=== PATIENT | male | born 1985 | race Hispanic/Latino ===

== ENCOUNTER 2020-11-09 23:30 | Inpatient (IN) | payer OTHER ==
[~2020-11-09] VITALS: Ht 175.3 cm; Wt 108.1 kg
[2020-11-10] VITALS (7 sets, daily range): BP systolic 103–117; BP diastolic 53–81
[2020-11-10] MEDS ORDERED: CEFTRIAXONE SODIUM 1 GM ONE ×2 (00:13→00:27)
[2020-11-10] MEDS ORDERED: AZITHROMYCIN 500MG+NS 250ML 250 ML IV ONE (00:13)
[2020-11-10] MEDS ORDERED: DEXAMETHASONE SOD PHOSPHATE 10MG/ML 1ML VIAL ONE (00:13)
[2020-11-10 00:16] LABS: CARBON DIOXIDE 26 mmol/L (21-32); CHLORIDE 101 mmol/L (101-111); CREATININE 1.2 mg/dL (0.5-1.5); GLOMERULAR FILTR. RATE CALC 73 mL/min (>60); GLUCOSE,RANDOM 112 mg/dL (70-105); POTASSIUM 3.5 mmol/L (3.5-5.1); SODIUM SERUM 140 mmol/L (136-145); UREA NITROGEN, BLOOD 13 mg/dL (7-18)
[2020-11-10 00:17] LABS: INR 1.06 (0.85-1.15); PROTHROMBIN TIME 11.5 SEC (9.6-11.6)
[2020-11-10 00:18] LABS: PARTIAL THROMBOPLASTIN TIME 27.1 SEC (26.3-35.5)
[2020-11-10 00:20] LABS: BASOPHILS % (AUTO) 0.2 % (0.0-5.0); HEMATOCRIT 47.8 % (42-54); LYMPHOCYTES % (AUTO) 14.5 % (21.0-51.0); MEAN CORPUSCULAR HEMOGLOBIN 29.6 pg (27.0-33.0); MEAN CORPUSCULAR HGB CONC 33.7 g/dL (32.0-36.0); MEAN CORPUSCULAR VOLUME 87.9 fL (79-99); MONOCYTES % (AUTO) 8.4 % (3.0-13.0); NEUTROPHILS % (AUTO) 75.9 % (40.0-77.0); PLATELET COUNT (AUTO) 238 K/uL (130-400); RED BLOOD CELL COUNT(AUTO) 5.44 MIL/uL (4.50-6.20); RED CELL DISTRIBUTION WIDTH 13.1 % (11.0-15.5); WHITE BLOOD COUNT (AUTO) 5.1 K/uL (4.8-10.8)
[2020-11-10 00:32] LABS: ALANINE AMINOTRANSFERASE 112 U/L (12-78); ALBUMIN 3.5 g/dL (3.5-5.0); ASPARTATE AMINOTRANSFERASE 112 U/L (10-37); MYOGLOBIN 200 ng/mL (10-92); TOTAL PROTEIN, SERUM 7.6 g/dL (6.0-8.3); TROPONIN I < 0.04 ng/mL (0.00-0.06)
[2020-11-10 00:35] LABS: CREATINE KINASE, TOTAL 500 U/L (21-232)
[2020-11-10 00:57] LABS: APPEARANCE,URINE Clear (CLEAR); BILIRUBIN,URINE Small (NEGATIVE); COLOR,URINE Dark Yellow (YELLOW); GLUCOSE, URINE (UA) Negative (NEGATIVE); KETONES,URINE 15 mg/dL (NEGATIVE); LEUKOCYTE ESTERASE ,URINE Negative (NEGATIVE); NITRATE,URINE Negative (NEGATIVE); OCCULT BLOOD,URINE Negative (NEGATIVE); PH,URINE 5.5 (5.0-8.0); PROTEIN,URINE POS 1+ mg/dL (NEGATIVE)
[2020-11-10 01:18] LABS: BACTERIA,URINE Few /HPF (None Seen); RBC,URINE 0-1 /HPF (0-1); SQUAMOUS EPITHELIAL CELL,UR 0-2 /HPF (0-2); WBC,URINE 0-1 /HPF (0-1)
[2020-11-10] MEDS ORDERED: DOXYCYCLINE 100MG+NS 250ML IV SCH (02:15)
[2020-11-10] MEDS ORDERED: CEFTRIAXONE SODIUM 1 GM IVP SCH ×2 (02:15→12:00)
[2020-11-10] MEDS ORDERED: PHARMACY COMMUNICATION MISC SCH (02:15)
[2020-11-10] MEDS ORDERED: ERGOCALCIFEROL (VITAMIN D2) 50,000 UNIT CAPSULE PO ONE (02:15)
[2020-11-10] MEDS ORDERED: DEXAMETHASONE SOD PHOSPHATE 4 MG/ML 1ML VIAL IVP SCH (02:15)
[2020-11-10] MEDS ORDERED: GUAIFENESIN-CODEINE 5 ML SYRUP PO PRN (02:15)
[2020-11-10] MEDS ORDERED: ONDANSETRON HCL 4 MG/2 ML VIAL IV PRN (02:15)
[2020-11-10] MEDS ORDERED: LACTULOSE 20 GM/30 ML UDCUP PO PRN (02:15)
[2020-11-10] MEDS ORDERED: ERGOCALCIFEROL (VITAMIN D2) 50,000 UNIT CAPSULE ONE (02:38)
[2020-11-10] MEDS ORDERED: DOXYCYCLINE 100MG+NS 250ML 250 ML IV ONE (02:38)
[2020-11-10] MEDS ORDERED: ONDANSETRON HCL 4 MG/2 ML VIAL ONE (02:50)
[2020-11-10 04:56] LABS: ABG BASE EXCESS 1.8 mmol/L (-2.0-3.0); ABG OXYGEN SATURATION 83.2 % (95.0-99.0); ABG PCO2 35 mmHg (35-48)
[2020-11-10] MEDS ORDERED: FISH1CAP27 PO (05:44)
[2020-11-10] MEDS ORDERED: CHOL50009 PO (05:44)
[2020-11-10] MEDS ORDERED: ZINC50TA64 PO (05:44)
[2020-11-10] MEDS ORDERED: ASCO500T92 PO (05:44)
[2020-11-10] MEDS ORDERED: SODIUM CHLORIDE 0.9% 250 ML IV ONE ×2 (05:57→07:41)
[2020-11-10] MEDS ORDERED: ENOXAPARIN SODIUM 40 MG/0.4 ML SYRINGE SQ SCH ×2 (06:00→09:00)
[2020-11-10] MEDS ORDERED: FAMOTIDINE/PF 20 MG/2 ML VIAL IV SCH (09:00)
[2020-11-10] MEDS ORDERED: ASCORBIC ACID 500 MG TAB PO SCH (09:00)
[2020-11-10] MEDS ORDERED: ZINC SULFATE 220 CAPSULE PO SCH (09:00)
[2020-11-10 11:24] LABS: ALBUMIN 3.2 g/dL (3.5-5.0); BILIRUBIN,DIRECT 0.4 mg/dL (0.0-0.3); BILIRUBIN,TOTAL 0.8 mg/dL (0.2-1.0); TOTAL PROTEIN, SERUM 6.9 g/dL (6.0-8.3)
[2020-11-10] MEDS ORDERED: ACETAMINOPHEN 325 MG TAB PO PRN ×2 (12:03)
[2020-11-10] MEDS ORDERED: DOXYCYCLINE HYCLATE 100 MG TABLET PO SCH (12:07)
[2020-11-10 12:33] LABS: HEMOGLOBIN A1C 6.3 % (4.0-6.0)
[2020-11-10] MEDS: DEXAMETHASONE SOD PHOSPHATE 4 MG/ML 1ML VIAL IVP SCH (12:52)
[2020-11-10] MEDS: ENOXAPARIN SODIUM 60 MG/0.6 ML SQ SCH ×2 (12:53→23:33)
[2020-11-10] MEDS ORDERED: IOHEXOL 350 MG/ML 100ML INFUS..BTL IV ONE (13:24)
[2020-11-10] MEDS: BARICITINIB (EUA) 2 MG TABLET PO SCH (16:33)
[2020-11-10] MEDS ORDERED: REMDESIVIR (EUA) 200 MG in SODIUM CHLORIDE 0.9% 250 ML IV SCH (17:00)
[2020-11-11 03:38] VITALS: BP 98/47
[2020-11-11 05:26] LABS: BASOPHILS % (AUTO) 0.1 % (0.0-5.0); HEMATOCRIT 43.8 % (42-54); LYMPHOCYTES % (AUTO) 14.6 % (21.0-51.0); MEAN CORPUSCULAR HEMOGLOBIN 29.7 pg (27.0-33.0); MEAN CORPUSCULAR HGB CONC 33.3 g/dL (32.0-36.0); MEAN CORPUSCULAR VOLUME 89.2 fL (79-99); MONOCYTES % (AUTO) 7.7 % (3.0-13.0); NEUTROPHILS % (AUTO) 76.6 % (40.0-77.0); PLATELET COUNT (AUTO) 257 K/uL (130-400); RED BLOOD CELL COUNT(AUTO) 4.91 MIL/uL (4.50-6.20); RED CELL DISTRIBUTION WIDTH 13.1 % (11.0-15.5); WHITE BLOOD COUNT (AUTO) 6.7 K/uL (4.8-10.8)
[2020-11-11 05:44] LABS: ALBUMIN 2.9 g/dL (3.5-5.0); BILIRUBIN,TOTAL 0.8 mg/dL (0.2-1.0); CRP QUANTITATIVE 22.9 mg/L (0.00-9.0); POTASSIUM 3.9 mmol/L (3.5-5.1); TOTAL PROTEIN, SERUM 6.6 g/dL (6.0-8.3)
[2020-11-11 08:39] VITALS: BP 81/45
[2020-11-11] MEDS: DEXAMETHASONE SOD PHOSPHATE 4 MG/ML 1ML VIAL IVP SCH (09:09)
[2020-11-11] MEDS: FAMOTIDINE 20MG TAB 20 MG TAB PO SCH (09:09)
[2020-11-11] MEDS ORDERED: PHARMACY COMMUNICATION MISC SCH ×2 (09:45→16:45)
[2020-11-11] MEDS: ENOXAPARIN SODIUM 100 MG/1 ML SQ SCH ×2 (10:58→21:23)
[2020-11-11] MEDS ORDERED: COMPOUND IV REFRIGERATED 1 EACH IVSOLN MISC PRN (13:00)
[2020-11-11 13:15] VITALS: BP 95/57
[2020-11-11 16:55] VITALS: BP 111/53
[2020-11-11] MEDS: BARICITINIB (EUA) 2 MG TABLET PO SCH (17:09)
[2020-11-11] MEDS: REMDESIVIR (EUA) 100 MG in SODIUM CHLORIDE 0.9% 250 ML IV SCH (17:10)
[2020-11-11 17:47] LABS: CREATININE 1.1 mg/dL (0.5-1.5); CRP QUANTITATIVE 27.2 mg/L (0.00-9.0); POTASSIUM 4.3 mmol/L (3.5-5.1)
[2020-11-11 19:31] VITALS: BP 123/77
[2020-11-11 23:55] VITALS: BP 104/50
[2020-11-12] VITALS (8 sets, daily range): BP systolic 92–113; BP diastolic 46–72
[2020-11-12 02:39] LABS: BASOPHILS % (AUTO) 0.2 % (0.0-5.0); HEMATOCRIT 44.2 % (42-54); LYMPHOCYTES % (AUTO) 18.5 % (21.0-51.0); MEAN CORPUSCULAR HEMOGLOBIN 29.5 pg (27.0-33.0); MEAN CORPUSCULAR HGB CONC 32.8 g/dL (32.0-36.0); MEAN CORPUSCULAR VOLUME 89.8 fL (79-99); MONOCYTES % (AUTO) 6.9 % (3.0-13.0); NEUTROPHILS % (AUTO) 72.7 % (40.0-77.0); PLATELET COUNT (AUTO) 276 K/uL (130-400); RED BLOOD CELL COUNT(AUTO) 4.92 MIL/uL (4.50-6.20); RED CELL DISTRIBUTION WIDTH 12.9 % (11.0-15.5); WHITE BLOOD COUNT (AUTO) 4.8 K/uL (4.8-10.8)
[2020-11-12 02:59] LABS: BILIRUBIN,TOTAL 0.8 mg/dL (0.2-1.0); CREATININE 1.1 mg/dL (0.5-1.5); CRP QUANTITATIVE 28.8 mg/L (0.00-9.0); POTASSIUM 3.9 mmol/L (3.5-5.1); TOTAL PROTEIN, SERUM 6.9 g/dL (6.0-8.3)
[2020-11-12] MEDS: ENOXAPARIN SODIUM 100 MG/1 ML SQ SCH ×2 (08:02→21:20)
[2020-11-12] MEDS: FAMOTIDINE 20MG TAB 20 MG TAB PO SCH (08:02)
[2020-11-12] MEDS: DEXAMETHASONE SOD PHOSPHATE 4 MG/ML 1ML VIAL IVP SCH (08:02)
[2020-11-12] MEDS: BARICITINIB (EUA) 2 MG TABLET PO SCH (16:27)
[2020-11-12] MEDS: REMDESIVIR (EUA) 100 MG in SODIUM CHLORIDE 0.9% 250 ML IV SCH (16:28)
[2020-11-13] VITALS (8 sets, daily range): BP systolic 84–118; BP diastolic 46–68
[2020-11-13 05:26] LABS: BASOPHILS % (AUTO) 0.3 % (0.0-5.0); EOSINOPHILS % (AUTO) 0.1 % (0.0-8.0); HEMATOCRIT 47.1 % (42-54); MEAN CORPUSCULAR HEMOGLOBIN 29.9 pg (27.0-33.0); MEAN CORPUSCULAR HGB CONC 33.8 g/dL (32.0-36.0); MEAN CORPUSCULAR VOLUME 88.7 fL (79-99); NEUTROPHILS % (AUTO) 75.8 % (40.0-77.0); PLATELET COUNT (AUTO) 371 K/uL (130-400); RED BLOOD CELL COUNT(AUTO) 5.31 MIL/uL (4.50-6.20); RED CELL DISTRIBUTION WIDTH 12.4 % (11.0-15.5); WHITE BLOOD COUNT (AUTO) 7.4 K/uL (4.8-10.8)
[2020-11-13 05:49] LABS: ALBUMIN 3.2 g/dL (3.5-5.0); BILIRUBIN,TOTAL 1.1 mg/dL (0.2-1.0); CRP QUANTITATIVE 18.3 mg/L (0.00-9.0); POTASSIUM 3.9 mmol/L (3.5-5.1); TOTAL PROTEIN, SERUM 7.6 g/dL (6.0-8.3)
[2020-11-13] MEDS: DEXAMETHASONE SOD PHOSPHATE 4 MG/ML 1ML VIAL IVP SCH (10:31)
[2020-11-13] MEDS: ENOXAPARIN SODIUM 100 MG/1 ML SQ SCH ×2 (10:32→21:06)
[2020-11-13] MEDS: FAMOTIDINE 20MG TAB 20 MG TAB PO SCH (10:32)
[2020-11-13] MEDS: BARICITINIB (EUA) 2 MG TABLET PO SCH (17:40)
[2020-11-13] MEDS: REMDESIVIR (EUA) 100 MG in SODIUM CHLORIDE 0.9% 250 ML IV SCH (17:41)
[2020-11-13] MEDS ORDERED: GUAIFENESIN-CODEINE 5 ML SYRUP ONE (23:39)
[2020-11-14 03:00] VITALS: BP 94/60
[2020-11-14 04:51] LABS: BASOPHILS % (AUTO) 0.3 % (0.0-5.0); EOSINOPHILS % (AUTO) 0.3 % (0.0-8.0); HEMATOCRIT 44.1 % (42-54); LYMPHOCYTES % (AUTO) 14.4 % (21.0-51.0); MEAN CORPUSCULAR HEMOGLOBIN 29.2 pg (27.0-33.0); MEAN CORPUSCULAR HGB CONC 33.6 g/dL (32.0-36.0); MEAN CORPUSCULAR VOLUME 87.2 fL (79-99); MONOCYTES % (AUTO) 5.2 % (3.0-13.0); NEUTROPHILS % (AUTO) 77.6 % (40.0-77.0); PLATELET COUNT (AUTO) 342 K/uL (130-400); RED BLOOD CELL COUNT(AUTO) 5.06 MIL/uL (4.50-6.20); RED CELL DISTRIBUTION WIDTH 12.3 % (11.0-15.5); WHITE BLOOD COUNT (AUTO) 6.7 K/uL (4.8-10.8)
[2020-11-14 05:15] LABS: POTASSIUM 3.9 mmol/L (3.5-5.1)
[2020-11-14] MEDS: ENOXAPARIN SODIUM 100 MG/1 ML SQ SCH ×2 (09:01→20:42)
[2020-11-14] MEDS: DEXAMETHASONE SOD PHOSPHATE 4 MG/ML 1ML VIAL IVP SCH (09:02)
[2020-11-14] MEDS: FAMOTIDINE 20MG TAB 20 MG TAB PO SCH (09:02)
[2020-11-14 09:03] VITALS: BP 108/62
[2020-11-14 11:52] VITALS: BP 100/52
[2020-11-14 16:46] VITALS: BP 112/72
[2020-11-14] MEDS: REMDESIVIR (EUA) 100 MG in SODIUM CHLORIDE 0.9% 250 ML IV SCH (17:07)
[2020-11-14] MEDS: BARICITINIB (EUA) 2 MG TABLET PO SCH (17:07)
[2020-11-14 19:00] VITALS: BP 97/59
[2020-11-14 21:07] LABS: HEPATITIS Bs ANTIGEN SCREEN P Negative (Negative)
[2020-11-14 21:07] LABS: HEPATITIS A ANTIBODY IGM Negative (Negative); HEPATITIS B CORE IGM Negative (Negative); HEPATITIS Bs ANTIGEN SCREEN P Negative (Negative)
[2020-11-14 23:00] VITALS: BP 92/43
[2020-11-15] VITALS (7 sets, daily range): BP systolic 83–129; BP diastolic 42–70
[2020-11-15 05:24] LABS: BASOPHILS % (AUTO) 0.4 % (0.0-5.0); EOSINOPHILS % (AUTO) 0.4 % (0.0-8.0); LYMPHOCYTES % (AUTO) 14.5 % (21.0-51.0); MEAN CORPUSCULAR HEMOGLOBIN 29.6 pg (27.0-33.0); MEAN CORPUSCULAR HGB CONC 34.1 g/dL (32.0-36.0); MEAN CORPUSCULAR VOLUME 86.8 fL (79-99); MONOCYTES % (AUTO) 5.8 % (3.0-13.0); NEUTROPHILS % (AUTO) 76.7 % (40.0-77.0); PLATELET COUNT (AUTO) 419 K/uL (130-400); RED BLOOD CELL COUNT(AUTO) 5.07 MIL/uL (4.50-6.20); RED CELL DISTRIBUTION WIDTH 12.3 % (11.0-15.5); WHITE BLOOD COUNT (AUTO) 7.3 K/uL (4.8-10.8)
[2020-11-15 05:32] LABS: ALBUMIN 3.1 g/dL (3.5-5.0); BILIRUBIN,TOTAL 1.3 mg/dL (0.2-1.0); CREATININE 1.1 mg/dL (0.5-1.5); POTASSIUM 3.9 mmol/L (3.5-5.1); TOTAL PROTEIN, SERUM 6.8 g/dL (6.0-8.3)
[2020-11-15] MEDS: DEXAMETHASONE SOD PHOSPHATE 4 MG/ML 1ML VIAL IVP SCH (09:15)
[2020-11-15] MEDS: ENOXAPARIN SODIUM 100 MG/1 ML SQ SCH ×2 (09:15→20:21)
[2020-11-15] MEDS: FAMOTIDINE 20MG TAB 20 MG TAB PO SCH (09:16)
[2020-11-15] MEDS: BARICITINIB (EUA) 2 MG TABLET PO SCH (16:34)
[2020-11-16 03:00] VITALS: BP 96/58
[2020-11-16 04:55] LABS: HEMATOCRIT 46.5 % (42-54)
[2020-11-16 05:04] LABS: ALBUMIN 3.2 g/dL (3.5-5.0); BILIRUBIN,TOTAL 1.2 mg/dL (0.2-1.0); CREATININE 1.1 mg/dL (0.5-1.5); POTASSIUM 4.2 mmol/L (3.5-5.1); TOTAL PROTEIN, SERUM 6.9 g/dL (6.0-8.3)
[2020-11-16] MEDS: DEXAMETHASONE SOD PHOSPHATE 4 MG/ML 1ML VIAL IVP SCH (08:22)
[2020-11-16] MEDS: FAMOTIDINE 20MG TAB 20 MG TAB PO SCH (08:22)
[2020-11-16] MEDS: ENOXAPARIN SODIUM 100 MG/1 ML SQ SCH (08:23)
[2020-11-16 08:26] VITALS: BP 104/59
[2020-11-16 12:48] VITALS: BP 104/65
[2020-11-16] MEDS: BARICITINIB (EUA) 2 MG TABLET PO SCH (15:04)
[2020-11-16 16:27] VITALS: BP 98/70
[2020-11-16] MEDS: APIXABAN 5 MG TABLET PO SCH ×2 (20:16→21:00)
[2020-11-16 21:25] VITALS: BP 101/66
[2020-11-17] VITALS (7 sets, daily range): BP systolic 94–113; BP diastolic 57–70
[2020-11-17 05:02] LABS: BASOPHILS % (AUTO) 0.5 % (0.0-5.0); EOSINOPHILS % (AUTO) 0.8 % (0.0-8.0); HEMATOCRIT 45.1 % (42-54); LYMPHOCYTES % (AUTO) 21.1 % (21.0-51.0); MEAN CORPUSCULAR HGB CONC 33.7 g/dL (32.0-36.0); MONOCYTES % (AUTO) 9.2 % (3.0-13.0); NEUTROPHILS % (AUTO) 66.4 % (40.0-77.0); PLATELET COUNT (AUTO) 465 K/uL (130-400); RED BLOOD CELL COUNT(AUTO) 5.07 MIL/uL (4.50-6.20); RED CELL DISTRIBUTION WIDTH 12.4 % (11.0-15.5); WHITE BLOOD COUNT (AUTO) 6.7 K/uL (4.8-10.8)
[2020-11-17 05:10] LABS: ALBUMIN 3.2 g/dL (3.5-5.0); BILIRUBIN,TOTAL 1.3 mg/dL (0.2-1.0); CRP QUANTITATIVE 3.2 mg/L (0.00-9.0); TOTAL PROTEIN, SERUM 6.8 g/dL (6.0-8.3)
[2020-11-17] MEDS: APIXABAN 5 MG TABLET PO SCH ×2 (08:42→21:20)
[2020-11-17] MEDS: FAMOTIDINE 20MG TAB 20 MG TAB PO SCH (08:42)
[2020-11-17] MEDS: DEXAMETHASONE 4 MG TAB PO SCH (08:43)
[2020-11-17] MEDS: BARICITINIB (EUA) 2 MG TABLET PO SCH (15:03)
[2020-11-18 00:13] VITALS: BP 102/64
[2020-11-18 04:12] VITALS: BP 101/61
[2020-11-18 06:20] LABS: BASOPHILS % (AUTO) 0.6 % (0.0-5.0); EOSINOPHILS % (AUTO) 0.1 % (0.0-8.0); HEMATOCRIT 46.9 % (42-54); LYMPHOCYTES % (AUTO) 23.6 % (21.0-51.0); MEAN CORPUSCULAR HGB CONC 34.1 g/dL (32.0-36.0); MONOCYTES % (AUTO) 9.9 % (3.0-13.0); NEUTROPHILS % (AUTO) 63.7 % (40.0-77.0); PLATELET COUNT (AUTO) 479 K/uL (130-400); RED BLOOD CELL COUNT(AUTO) 5.33 MIL/uL (4.50-6.20); RED CELL DISTRIBUTION WIDTH 12.2 % (11.0-15.5); WHITE BLOOD COUNT (AUTO) 6.7 K/uL (4.8-10.8)
[2020-11-18 06:38] LABS: ALBUMIN 3.4 g/dL (3.5-5.0); BILIRUBIN,TOTAL 1.5 mg/dL (0.2-1.0); CRP QUANTITATIVE 2.3 mg/L (0.00-9.0); POTASSIUM 4.2 mmol/L (3.5-5.1)
[2020-11-18] MEDS: APIXABAN 5 MG TABLET PO SCH (08:26)
[2020-11-18] MEDS: FAMOTIDINE 20MG TAB 20 MG TAB PO SCH (08:26)
[2020-11-18] MEDS: DEXAMETHASONE 4 MG TAB PO SCH (08:26)
[2020-11-18 08:42] VITALS: BP 98/58
[2020-11-18 12:00] VITALS: BP 107/66
[2020-11-18] MEDS ORDERED: APIX5TAB PO (14:52)
[2020-11-18] MEDS ORDERED: DEXA6TAB PO (14:52)
[2020-11-18] MEDS ORDERED: PANT40TA55 PO (14:52)
[2020-11-18 16:08] VITALS: BP 100/58
[2020-11-18] MEDS: BARICITINIB (EUA) 2 MG TABLET PO SCH (16:35)
== END 2020-11-18 17:30 | disposition home or self-care (01) | DRG 177 ==
LOC: EDH 23:30 → EDHIP 23:31 → 2AH 11-10 03:19
PROVIDERS: ADMIT Internal Medicine; ATTEND Internal Medicine
PROC: XW13325 Transfusion of Convalescent Plasma (Nonautologous) into Peripheral Vein, Percutaneous Approach, New Technology Group 5 (ICD-10-PCS; principal; 2020-11-10)
PROC: XW033E5 Introduction of Remdesivir Anti-infective into Peripheral Vein, Percutaneous Approach, New Technology Group 5 (ICD-10-PCS; 2020-11-10)
PROC: 5A0935A Assistance with Respiratory Ventilation, Less than 24 Consecutive Hours, High Flow/Velocity Cannula (ICD-10-PCS; 2020-11-10)
PROC: 5A0935A Assistance with Respiratory Ventilation, Less than 24 Consecutive Hours, High Flow/Velocity Cannula (ICD-10-PCS; 2020-11-11)
PROC: 5A0935A Assistance with Respiratory Ventilation, Less than 24 Consecutive Hours, High Flow/Velocity Cannula (ICD-10-PCS; 2020-11-12)
PROC: 5A0935A Assistance with Respiratory Ventilation, Less than 24 Consecutive Hours, High Flow/Velocity Cannula (ICD-10-PCS; 2020-11-13)
PROC: 5A0935A Assistance with Respiratory Ventilation, Less than 24 Consecutive Hours, High Flow/Velocity Cannula (ICD-10-PCS; 2020-11-14)
DX: U07.1 COVID-19 (principal); J12.82 Pneumonia due to coronavirus disease 2019; I26.99 Other pulmonary embolism without acute cor pulmonale; J80 Acute respiratory distress syndrome; B19.9 Unspecified viral hepatitis without hepatic coma; D68.59 Other primary thrombophilia; M62.82 Rhabdomyolysis; E11.9 Type 2 diabetes mellitus without complications; E66.01 Morbid (severe) obesity due to excess calories; E87.6 Hypokalemia; R53.81 Other malaise; I10 Essential (primary) hypertension; Z68.34 Body mass index [BMI] 34.0-34.9, adult; Z74.01 Bed confinement status
CPT/HCPCS: 36415; 36430; 36600; 71045; 71275; 74176; 76705; 80048; 80053; 80074; 80076; 81001; 82550; 82728; 82803; 82948; 83036; 83605; 83615; 83874; 84145; 84484; 85014; 85018; 85025; 85378; 85610; 85730; 86140; 86701; 86706; 86850; 86900; 86901; 86927; 87040; 87088; 87340; 87390; 87426; 87520; 87804; 93005; 93306; 93356; 93970; 94760; G0378; J0456; J0696; J1100; J1650; J2405; J3490; J7050; J8540; Q9967